=== PATIENT | female | born 1980 | race Caucasian/White ===

== ENCOUNTER 2019-08-05 06:29 | Emergency (ER) | payer MEDICARE, MEDICAID, SELFPAY ==
[2019-08-05 06:33] VITALS: BP 119/74; PULSE 72; RESP 16; TEMP 36.4; O2SAT 99; BMI 32.3
--- NOTE | 2019-08-05 06:44 | ED_ITS ---
HPI - Eye Problem General: Chief complaint: Eye Problems Stated complaint: R EYE PAIN Time Seen by Provider: 08/05/19 06:39 History of Present Illness: HPI Narrative: 39 yo female comes in complaining of right eye pain. She woke up yesterday with red and inflamed right eye she did not do any activities where she thinks she might have gotten something in the eye. She has had photophobia and excessive tearing. Her tetanus is up-to-date. She has no other history of direct trauma to the eye. She is not having any problem with vision other than the light sensitivity. Associated symptoms: Denies fever(s) Review of Systems Const: Denies: fever(s), chills, body aches, fatigue, malaise or night sweats Eyes: Denies: change in vision or blurry vision ENMT: Denies: throat pain, oral sores, dental pain, nasal discharge or nasal congestion Card: Denies: chest pain, palpitations, irregular heart rhythm, edema, syncope, dyspnea on exertion, orthopnea or leg pain with exertion Resp: Denies: dyspnea, productive cough, non-productive cough or wheezing PFSH ED PFSH: Medical History (Updated 08/05/19 @ 07:58 by José Miguel Zaman DO) Hypothyroidism, unspecified Tubal ligation evaluation Surgical History (Updated 08/05/19 @ 07:58 by José Miguel Zaman DO) History of cholecystectomy History of esophagogastroduodenoscopy (EGD) Myringotomy tube status Status post gastric surgery Social History Smoking and tobacco status: current every day smoker Physical Exam Const: COMMON NORMALS: no acute distress GENERAL APPEARANCE: cooperative and comfortable ORIENTATION/CONSCIOUSNESS: Yes awake, Yes oriented to person, Yes oriented to place and Yes oriented to time HENMT: COMMON NORMALS: normocephalic, atraumatic, hearing grossly normal bilaterally, external ears normal, EAC's normal, TM's normal bilaterally, Normal nasal mucous membranes and turbinates present, moist oral mucous membranes and oropharynx normal HEAD & SCALP: normocephalic and atraumatic NOSE: Normal nasal mucous membranes and turbinates present EXTERNAL EAR: Yes external ears normal EXTERNAL AUDITORY CANAL: EAC's normal TYMPANIC MEMBRANE: TM's normal bilaterally Eye: COMMON NORMALS: Equal, round and reactive pupils present, EOMs intact bilaterally and no scleral icterus VISUAL ACUITY: Yes acuity normal (Grossly evaluated at the bedside) SCLERA: scleral abnormal Laterality of scleral abnormality: positive right scleral injection, scleral tenderness and other (Mild ecchymosis) CORNEA: Yes corneas normal and fluorescein used PUPIL: Yes Equal, round and reactive pupils present OTHER: Fluorescein eye exam with topical tetracaine no evidence of corneal abrasion. Single drop of Cyclogyl applied to the right eye. Lymph: LYMPHATIC: no lymphadenopathy noted and no lymphedema noted Resp: COMMON NORMALS: normal respiratory effort, No retractions, No use of accessory muscles and clear to auscultation bilaterally AUSCULTATION: clear to auscultation bilaterally Cardio: COMMON NORMALS: regular rate, regular rhythm and No murmurs present (Cardio) RATE: regular rate RHYTHM: regular rhythm Neuro: SENSORIUM/ORIENTATION: Yes oriented to person, Yes oriented to place and Yes oriented to time Course Vital Signs: Vital signs: Vital Signs Temperature 97.6 F 08/05/19 06:33 Pulse Rate 72 08/05/19 06:33 Respiratory Rate 16 08/05/19 06:33 Blood Pressure 119/74 08/05/19 06:33 Pulse Oximetry 99 08/05/19 06:33 Discharge Plan Discharge Patient Disposition: Home, Self-Care Clinical Impression: Iritis of right eye Condition: Stable Prescriptions: New TobraDex 0.3-0.1 % drops,suspension 2 drop ophthalmic (eye) Q6H 5 Days RF: 0 No Action multivitamin [Daily Multi-Vitamin] Tablet 1 tab PO DAILY RF: 0 sertraline [Zoloft] 25 mg tablet 25 mg PO DAILY Qty: 90 RF: 3 zolpidem [Ambien] 10 mg tablet 10 mg PO .hs Qty: 30 RF: 5 levothyroxine [Synthroid] 175 mcg tablet 175 mcg PO DAILY Qty: 90 RF: 3 Discharge Orders: Discharge Order (Routine); Ordered 08/05/19 Ordered By: José Miguel Zaman Referrals: Manoj Burnham MD [Primary Care Provider] - Activity Restrictions/Additional Instructions: Follow-up with Dr. Rivera in 3 to 4 days. Coding Level of Care Code ED Design Engineering Manager for Chg Fwd Exam Comprehensive
[2019-08-05] MEDS: fluorescein 1 mg Strip EYE-RIGHT (07:28)
[2019-08-05] MEDS: tetracaine 0.5% Op Soln 4 mL Btl 1 DROP EYE-RIGHT (07:29)
[2019-08-05] MEDS: eye irrigation 30 mL Btl EYE-RIGHT (07:41)
[2019-08-05] MEDS: cyclopentolate 1% Op Soln 2 mL Btl 1 DROP EYE-RIGHT (07:52)
[2019-08-05 08:00] VITALS: BP 134/48; PULSE 65; RESP 18; O2SAT 97
== END 2019-08-05 08:00 | disposition home or self-care (01) ==
PROVIDERS: Emergency Provider Family Medicine; Family Provider Internal Medicine; PCP Internal Medicine
DX: H20.9 Unspecified iridocyclitis (principal); F17.210 Nicotine dependence, cigarettes, uncomplicated; E03.9 Hypothyroidism, unspecified
CPT/HCPCS: 12345; 99281; 99283

== ENCOUNTER 2019-11-03 16:37 | Emergency (ER) | payer MEDICARE, MEDICAID, SELFPAY ==
[2019-11-03 16:45] VITALS: PULSE 82; RESP 18; TEMP 36.8; O2SAT 97; BMI 35.5
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
[2019-11-03] MEDS: HYDROcodone-acetaminophen 5-325 mg Tablet 1 TAB PO (19:07)
[2019-11-03 19:31] VITALS: BP 121/79; PULSE 68; RESP 16; O2SAT 97
[2019-11-03] MEDS: HYDROcodone-acetaminophen 7.5-325 mg Tablet 1 TAB PO (19:31)
== END 2019-11-03 19:38 | disposition home or self-care (01) ==
PROVIDERS: Emergency Provider Physician Assistant; PCP Internal Medicine
DX: M25.511 Pain in right shoulder (principal); F17.210 Nicotine dependence, cigarettes, uncomplicated
CPT/HCPCS: 12345; 73030; 99281; 99283

== ENCOUNTER → 2020-01-14 08:17 | Outpatient (BNVA) | payer MEDICARE, MEDICAID, SELFPAY | PROVIDERS: PCP Internal Medicine; Visit Provider Nurse Practitioner Family | DX: Z11.59 Encounter for screening for other viral diseases (principal) | CPT/HCPCS: 87635 ==